=== PATIENT | female | born 1980 | race Caucasian/White ===

== ENCOUNTER 2023-06-29 07:01 | Emergency (ER) | payer OTHER ==
--- NOTE | 2023-06-29 07:11 | ERPHSYRPT ---
- History of Present Illness Time Seen by Provider: 06/29/23 07:10 Source: patient Exam Limitations: no limitations Physician History: This is a 42-year-old white female patient who receives her obstetrics care in [facility] and is 15 weeks . This morning, she began having significant vaginal cramping and vaginal bleeding. At approximately 8 weeks ges tation she underwent an OB ultrasound which revealed a single fetus within the uterus. No ectopic was present. This is per patient report. Patient denies chest pain. Patient denies shortness of breath. Patient has had 7 pregnancies and has had spontaneous miscarriages in the past. Patient is on progesterone. Timing/Duration: today Activites at Onset: none Quality: cramping Onset Location: vaginal Pain Radiation: none Severity of Pain-Max: moderate Severity of Pain-Current: moderate Prior abdominal problems: none Modifying Factors: Improves With: nothing Associated Symptoms: vaginal discharge (Vaginal bleeding) Allergies/Adverse Reactions: No Known Drug Allergies Allergy (Unverified 06/29/23 07:51) Travel Risk - International Travel Have you traveled outside of the country in past 3 weeks: No - Emerging Infectious Disease Are you exhibiting symptoms associated with any current EIDs: No - Review of Systems Constitutional: No Symptoms Eyes: No Symptoms Ears, Nose, & Throat: No Symptoms Respiratory: No Symptoms Cardiac: No Symptoms Abdominal/Gastrointestinal: Abdominal Pain (Suprapubic, vaginal cramping) Genitourinary Symptoms: Vaginal Bleeding Musculoskeletal: No Symptoms Skin: No Symptoms Neurological: No Symptoms Psychological: No Symptoms Endocrine: No Symptoms Hematologic/Lymphatic: No Symptoms Immunological/Allergic: No Symptoms All Other Systems: Reviewed and Negative - Past Medical History Pertinent Past Medical History: Yes - Past Surgical History Past Surgical History: Yes - Nursing Vital Signs Nursing Vital Signs: Initial Vital Signs Temperature 98 F 06/29/23 07:15 Pulse Rate 86 06/29/23 07:15 Respiratory Rate 16 06/29/23 07:15 Blood Pressure 179/82 06/29/23 07:15 O2 Sat by Pulse Oximetry 98 06/29/23 07:15 Pain Scale Pain Intensity 8 - Physical Exam General Appearance: no apparent distress, alert, anxiety Eye Exam: PERRL/EOMI, eyes nml inspection Ears, Nose, Throat Exam: normal ENT inspection, moist mucous membranes Neck Exam: normal inspection, non-tender, supple, full range of motion Respiratory Exam: normal breath sounds, lungs clear, airway intact, No chest tenderness, No respiratory distress Cardiovascular Exam: regular rate/rhythm, normal heart sounds, normal peripheral pulses Gastrointestinal/Abdomen Exam: soft, normal bowel sounds, tenderness (Mild in the suprapubic region), No guarding, No rebound Pelvic Exam: not done Rectal Exam: not done Back Exam: normal inspection, normal range of motion, No CVA tenderness, No vertebral tenderness Extremity Exam: normal inspection, normal range of motion, pelvis stable Neurologic Exam: alert, oriented x 3, cooperative, physics technician II-XII nml as tested, nml cerebellar function, nml station & gait, sensation nml Skin Exam: normal color, warm, dry Lymphatic Exam: No adenopathy SpO2 Interpretation: normal O2 Delivery: Room Air - Course Nursing assessment & vital signs reviewed: Yes Ordered Tests: Active Orders 24 hr Category Date Time Status IV Insertion STAT Care 06/29/23 07:36 Active OB LIMITED [US] Stat Exams 06/29/23 07:35 Taken CBC W DIFF Stat Lab 06/29/23 07:40 Completed CMP Stat Lab 06/29/23 07:40 Completed HCG, Quantitative (Inhouse) Stat Lab 06/29/23 07:40 Completed UA W/RFX UR CULTURE Stat Lab 06/29/23 08:47 Ordered Medication Summary Discontinued Medications Generic Name Dose Route Start Last Admin Trade Name Patricia PRN Reason Stop Dose Admin Hydrocodone Bitart/Acetaminophen 1 tab 06/29/23 08:18 06/29/23 08:27 Hydrocodone/Apap 5/325 1 Tab Tablet PO 06/29/23 08:19 1 tab STAT ONE Administration Hydrocodone Bitart/Acetaminophen Confirm 06/29/23 08:24 Hydrocodone/Apap 5/325 1 Tab Tablet Administered 06/29/23 08:25 Dose 1 tab .ROUTE .STK-MED ONE Sodium Chloride 1,000 mls @ 999 mls/hr 06/29/23 07:36 06/29/23 07:50 Sodium Chloride 0.9% 1000 Ml IV 06/29/23 08:36 999 mls/hr .Q1H1M STA Administration Sodium Chloride Confirm 06/29/23 07:49 Sodium Chloride 0.9% 1000 Ml Administered 06/29/23 07:50 Dose 1,000 mls @ ud .ROUTE .STK-MED ONE Morphine Sulfate 4 mg 06/29/23 07:59 06/29/23 08:20 Morphine Sulfate 4 Mg/Ml Injection IV 06/29/23 08:00 Not Given STAT ONE Morphine Sulfate Confirm 06/29/23 08:11 Morphine Sulfate 4 Mg/Ml Injection Administered 06/29/23 08:12 Dose 4 mg .ROUTE .STK-MED ONE Ondansetron HCl 4 mg 06/29/23 07:59 06/29/23 08:20 Ondansetron Hcl 4 Mg/2 Ml Vial IV 06/29/23 08:00 Not Given STAT ONE Ondansetron HCl Confirm 06/29/23 08:11 Ondansetron Hcl 4 Mg/2 Ml Vial Administered 06/29/23 08:12 Dose 4 mg .ROUTE .STK-MED ONE Lab/Rad Data: Laboratory Result Diagrams 06/29/23 07:40 06/29/23 07:40 Laboratory Results 06/29/23 06/29/23 Range/Units 07:40 07:40 WBC 8.1 (4.0-10.5) x10^3/uL RBC 4.13 (4.1-5.4) x10^6/uL Hgb 12.8 (12.0-16.0) g/dL Hct 38.3 (35-47) % MCV 92.7 (78-100) fL MCH 31.0 (26-32) pg MCHC 33.4 (32-36) g/dL RDW 12.2 (11.5-14.0) % Plt Count 223 (150-450) x10^3/uL MPV 9.4 (7.5-11.0) fL Gran % 76.4 H (36.0-66.0) % Immature Gran % (Auto) 0.4 (0.00-0.4) % Nucleat RBC Rel Count 0.0 (0.00-0.1) % Eos # (Auto) 0.14 (0-0.5) x10^3/uL Immature Gran # (Auto) 0.03 (0.00-0.03) x10^3u/L Absolute Lymphs (auto) 1.14 (1.0-4.6) x10^3/uL Absolute Monos (auto) 0.54 (0.0-1.3) x10^3/uL Absolute Nucleated RBC 0.00 (0.00-0.01) x10^3u/L Lymphocytes % 14.2 L (24.0-44.0) % Monocytes % 6.7 (0.0-12.0) % Eosinophils % 1.7 (0.00-5.0) % Basophils % 0.6 (0.0-0.4) % Absolute Granulocytes 6.15 (1.4-6.9) x10^3/uL Basophils # 0.05 (0-0.4) x10^3/uL Sodium 140 (135-145) mmol/L Potassium 4.0 (3.5-5.1) mmol/L Chloride 108 H (98-107) mmol/L Carbon Dioxide 25 (22-30) mmol/L Anion Gap 11.6 (5-15) MEQ/L BUN 10 (7-17) mg/dL Creatinine 0.60 (0.52-1.04) mg/dL Estimated GFR 115.6 ML/MIN Glucose 104 (74-106) mg/dL Calcium 9.5 (8.4-10.2) mg/dL Total Bilirubin 0.70 (0.2-1.3) mg/dL AST 21 (14-36) U/L ALT 17 (0-35) U/L Alkaline Phosphatase 83 (38-126) U/L Serum Total Protein 8.0 (6.3-8.2) g/dL Albumin 4.4 (3.5-5.0) g/dL Beta HCG, Quant 580.08 mIU/ml - Progress Progress: re-examined Air Movement: good Progress Note: 06/29/23 07:32 My medical decision making and the assignment of moderate complexity to the patient's medical issue today is based on review of the patient's past medical history, review the patient's medication list, review patient drug allergy list, history of present illness and physical findings on examination. The workup in this patient includes placement of intravenous line, infusion of normal saline solution, CBC, CMP, quantitative hCG, urinalysis and OB ultrasound greater than 14 weeks. Differential diagnosis includes spontaneous miscarriage, subchorionic bleed, urinary tract infection 06/29/23 08:00 I was just informed by the special events planner/technologist that there is no pole present within the uterus. There is a small amount of debris within the uterus. We will await the final report. We will attempt to contact Dr. Castaneda, the patient's hub inventory specialist out of [facility] to inform him. 06/29/23 08:19 The patient was offered morphine and Zofran intravenously. She declines those medications and does except the Dodson 5/325 tablet 06/29/23 09:[address] Gabriele Castaneda's office in [facility] at 9 AM on 06/29/2023. The phone number I called was [phone]. I spoke with Mera mahan who transferred me to [facility]. I provided [facility] with the summary of the patient's visit here in the emergency department. Dr. Castaneda was not avail able. They will be contacting her to provide recommendations and further instructions. Blood Culture(s) Obtained: No Antibiotics given: No Counseled pt/family regarding: lab results, diagnosis, need for follow-up, rad results Medical Desision Making - Independent Historian Additional History obtained from: Spouse - Diagnostic Testing Diagnostic test were ordered, analyzed, and reviewed by me: Yes Radiological Interpretation: Reviewed by me, Teleradiologist Report - Risk of complications The pt has a mod risk of morbidity or mortality based on: Need for prescription drug management - Departure Departure Disposition: Home Clinical Impression: Spontaneous miscarriage Condition: Stable Critical Care Time: No Referrals: DOCTOR,NO FAMILY [Primary Care Provider] - Follow up/PCP as directed Additional Instructions: Hold ibuprofen or Aleve products as discussed until you are only having light vaginal spotting. Drink plenty of fluids. Call your hub inventory specialist today to make arrangement for follow-up appointment for further evaluation and management. Prescriptions: Hydrocodone/APAP 5/325 [Dodson 5/325 mg] 1 each PO Q8H PRN PRN #8 tablet MDD 3 PRN Reason: Pain
[2023-06-29 07:36] VITALS: PULSE 86; RESP 16; TEMP 98
[2023-06-29 07:47] LABS: Absolute Neutrophil Ct (ANC) 6.15 x10^3/uL (1.4-6.9); BASOPHIL % 0.6 % (0.0-0.4); Basophil (Absolute #) 0.05 x10^3/uL (0-0.4); Eosinophil % 1.7 % (0.00-5.0); Eosinophil (Absolute #) 0.14 x10^3/uL (0-0.5); Hematocrit 38.3 % (35-47); Hemoglobin 12.8 g/dL (12.0-16.0); IMMATURE GRAN # 0.03 x10^3u/L (0.00-0.03); IMMATURE GRAN % 0.4 % (0.00-0.4); Lymphocyte (Absolute #) 1.14 x10^3/uL (1.0-4.6); Lymphocytes % 14.2 % (24.0-44.0); Mean Cell Volume 92.7 fL (78-100); Mean Corpuscular Hgb Concent. 33.4 g/dL (32-36); Mean Platelet Volume 9.4 fL (7.5-11.0); Monocyte (Absolute #) 0.54 x10^3/uL (0.0-1.3); Monocytes % 6.7 % (0.0-12.0); Neutrophil % 76.4 % (36.0-66.0); Platelet Count 223 x10^3/uL (150-450); Red Blood Count 4.13 x10^6/uL (4.1-5.4); Red Cell Distribution Width 12.2 % (11.5-14.0); White Blood Count 8.1 x10^3/uL (4.0-10.5)
[2023-06-29] MEDS ORDERED: Sodium Chloride 0.9% 1000 ML 1,000 ML ONE (07:49)
[2023-06-29] MEDS: Sodium Chloride 0.9% 1000 ML 1,000 ML IV STA (07:50)
[2023-06-29] MEDS ORDERED: MORPHINE SULFATE 4 MG INJ ONE (08:11)
[2023-06-29] MEDS ORDERED: Zofran 4 MG/2 ML VIAL ONE (08:11)
[2023-06-29 08:16] LABS: ALBUMIN 4.4 g/dL (3.5-5.0); ANION GAP 11.6 MEQ/L (5-15); BILIRUBIN,TOTAL 0.7 mg/dL (0.2-1.3); Calcium 9.5 mg/dL (8.4-10.2); Creatinine 1 0.6 mg/dL (0.52-1.04); EST GLOMERULAR FILTRATION RATE 115.6 ML/MIN; HCG, Quantitative (Inhouse) 580.08 mIU/ml
[2023-06-29] MEDS: MORPHINE SULFATE 4 MG INJ IV ONE (08:20)
[2023-06-29] MEDS: Zofran 4 MG/2 ML VIAL IV ONE (08:20)
[2023-06-29] MEDS ORDERED: NORCO 5/325 MG ONE (08:24)
[2023-06-29] MEDS: NORCO 5/325 MG PO ONE (08:27)
[2023-06-29 09:32] VITALS: BP 119/83; O2SAT 96
[2023-06-29 09:52] LABS: Appearance Cloudy (Clear); Bacteria None Seen /HPF (None Seen); Bilirubin Small (Negative); Blood Large (Negative); Epithelial Cells None Seen /HPF (None Seen); Glucose, Urine Negative (Negative); Hyaline Casts NONE SEEN /LPF (0-2); Ketones Negative (Negative); Leukocyte Esterase Small (Negative); Nitrite Negative (Negative); Ph 5.5 (4.6-8.0); Protein,Urine Dip 300 (Negative); RBC >100 /HPF (0-5); Urobilinogen 0.2 mg/dL (0.2)
[2023-06-29 09:57] LABS: ADD URINE CULTURE? YES (NO)
--- NOTE | 2023-06-29 11:12 | XRAY ---
Indication: Bleeding and cramping. 15 weeks gestation. 2-dimensional transabdominal early OB ultrasound performed. Comparison: None for this Uterus anteverted measuring 13.2 x 8.3 x 8.7 cm. No intrauterine gestational sac/ pole/ heart rate. Endometrial stripe is thickened measuring 2.9 cm. Query recent spontaneous with retained parts of conception or blood products. Neither ovaries are visualized. Impression: No intrauterine gestational sac/ pole/ heart tones. Thickened endometrial stripe. Query spontaneous with retained products of conception or blood products. Comment: Preliminary report was given.
== END 2023-06-29 09:49 | disposition home or self-care (01) ==
LOC: ED 07:01
DX: O03.9 Complete or unspecified spontaneous abortion without complication (principal); Z79.891 Long term (current) use of opiate analgesic
CPT/HCPCS: 36000; 36415; 76815; 80053; 81001; 84702; 85025; 87086; 99284; J2270; J2405; A9270-GY